=== PATIENT | male | born 1995 | race Caucasian/White ===

== ENCOUNTER 2018-07-23 01:59 | Emergency (ER) | payer OTHER ==
[2018-07-23] MEDS ORDERED: NS 1,000 ML IV ONE ×2 (02:03→05:35)
[2018-07-23] MEDS ORDERED: IOPAMIDOL (ISOVUE-300) 100 ML BTL ONE (02:05)
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
[2018-07-23 02:13] LABS: PLATELET COUNT 226 10^3/uL (150-400)
[2018-07-23] MEDS ORDERED: ceFAZolin 2 GM/DEXTROSE 100 ML IV ONE (03:40)
[2018-07-23] MEDS ORDERED: KETOROLAC 15 MG/1 ML SDV IVP ONE (04:45)
[2018-07-23] MEDS ORDERED: ACETAMINOPHEN 500 MG TAB PO ONE (04:45)
[2018-07-23] MEDS ORDERED: KETOROLAC 30 MG/1 ML SDV IVP ONE (04:46)
[2018-07-23 06:44] VITALS: BP 114/67
== END 2018-07-23 07:11 | disposition home or self-care (01) ==
LOC: EDUNIT#
PROC: 0HQ0XZZ Repair Scalp Skin, External Approach (ICD-10-PCS; principal; 2018-07-23)
DX: S06.0X9A Concussion with loss of consciousness of unspecified duration, initial encounter (principal); S01.01XA Laceration without foreign body of scalp, initial encounter; S30.811A Abrasion of abdominal wall, initial encounter; S80.212A Abrasion, left knee, initial encounter; S80.211A Abrasion, right knee, initial encounter; S20.319A Abrasion of unspecified front wall of thorax, initial encounter; F10.920 Alcohol use, unspecified with intoxication, uncomplicated; Y04.0XXA Assault by unarmed brawl or fight, initial encounter
CPT/HCPCS: 96365; G0480; J0690; J1885; Q9967